=== PATIENT | female | born 1990 | race Caucasian/White ===

== ENCOUNTER 2017-04-14 20:44 | Emergency (ER) | payer OTHER ==
[~2017-04-14] VITALS: Ht 152.4 cm; Wt 76.0 kg
[~2017-04-14 20:44] MED LIST: METH500T PO; NAPR-688 PO
[2017-04-14 20:47] VITALS: Ht 152.4 cm; Wt 76.0 kg
[2017-04-14] MEDS ORDERED: SOD CHLORIDE 0.9% 500 ML IV STA (22:09)
[2017-04-14] MEDS ORDERED: KETOROLAC 30 MG INJ IV STA (22:09)
[2017-04-14] MEDS ORDERED: DIPHENHYDRAMINE 50 MG INJ IV STA (22:09)
[2017-04-14] MEDS ORDERED: ONDANSETRON 4 MG INJ IV STA (22:09)
[2017-04-14 22:49] LABS: URINE BLOOD (Dip) POC Negative (NEGATIVE)
--- NOTE | 2017-04-15 00:04 | ERD ---
ER Documentation Chief Complaint Date/Time DATE: 04/14/17 TIME: 23:55 Chief Complaint difuse lower abdominal pain for past week HPI This pleasant 27-year-old female presents to emergency department with complaint of headache and abdominal pain, patient reports the abdominal pain is periumbilical and radiates to bilateral flanks. Denies dysuria, denies nausea, vomiting, or diarrhea, reports decreased appetite, headache is described as frontal, reports throbbing sensation and that she feels dizzy, denies any change in vision, patient has history of headaches in the past usually improve with Tylenol or Motrin. Patient has tried to take [id number] medication today with little relief of symptoms. Patient denies change in behavior, change in motor skills, fever, chills, diarrhea or head injury. ROS All systems reviewed and are negative except as per history of present illness. Medications Home Meds Active Scripts Methocarbamol* (Robaxin*) 500 Mg Tab, 500 MG PO Q8, #20 TAB Prov:HUMPHREY QUEZADA DO 10/21/16 Naproxen* (Naproxen*) 500 Mg Tablet, 500 MG PO BID, #20 TAB Prov:HUMPHREY QUEZADA DO 10/21/16 Allergies Allergies: Coded Allergies: No Known Allergy (Unverified , 10/20/16) PMhx/Soc History of Surgery: No Anesthesia Reaction: No Hx Neurological Disorder: No Hx Respiratory Disorders: No Hx Cardiac Disorders: No Hx Psychiatric Problems: No Hx Miscellaneous Medical Probl: No Hx Alcohol Use: No Hx Substance Use: No Hx Tobacco Use: No Smoking Status: Never smoker Physical Exam Vitals Vital Signs Date Time Temp Pulse Resp B/P Pulse Ox O2 Delivery O2 Flow Rate FiO2 04/14/17 20:47 97.6 69 18 132/96 99 Vitals stable, triage notes reviewed Physical Exam Const: No acute distress Head: Atraumatic Eyes: Normal Conjunctiva, PERRLA, EOMI ENT: Normal External Ears, Nose and Mouth. Neck: Full range of motion. Supple, no cervical point tenderness Resp: Chest rise and fall symmetrically, clear to auscultation bilaterally, no respiratory Cardio: Abd: Soft, nontender to palpation at this time, negative McBurney's point tenderness negative CVA tenderness Skin: Back: Ext: Neuro: Alert and oriented Face: EOMI, face and pharynx with normal sensation and function Motor: Normal strength throughout Sensation: Normal sensation throughout Speech: Normal Cerebel: Normal coordination Normal gait Normal finger to nose DTR: 2+ and symmetric upper/lower extremities Psych: Normal Mood and Affect Results 24 hrs Laboratory Tests Test 04/14/17 22:51 Bedside Urine pH (LAB) 5.5 Bedside Urine Protein (LAB) Negative Bedside Urine Glucose (UA) Negative Bedside Urine Ketones (LAB) Negative Bedside Urine Blood Negative Bedside Urine Nitrite (LAB) Negative Bedside Urine Leukocyte Esterase (L Negative Current Medications Medications (Trade) Dose Ordered Sig/Brigido Route PRN Reason Start Time Stop Time Status Last Admin Dose Admin Sodium Chloride (NS) 500 ml @ 500 mls/hr Q1H STAT IV 04/14/17 22:09 04/14/17 23:08 DC 04/14/17 22:45 Ondansetron HCl (Zofran Inj) 4 mg ONCE STAT IV 04/14/17 22:09 04/14/17 22:14 DC 04/14/17 22:43 Ketorolac Tromethamine (Toradol) 15 mg ONCE STAT IV 04/14/17 22:09 04/14/17 22:14 DC 04/14/17 22:44 Diphenhydramine HCl (Benadryl) 25 mg ONCE STAT IV 04/14/17 22:09 04/14/17 22:14 DC 04/14/17 22:42 Procedures/MDM This pleasant 27-year-old female presents to the emergency department with headache, and abdominal pain. Dizziness,. Patient has headache history, today' s headache did not respond to normal treatment with nonsteroidal anti- inflammatory medication. Patient does not remember the exact onset of headache nor this is the worst headache she has ever had. Patient's abdominal pain is intermittent, periumbilical and radiates to flanks. Appendicitis is not suspected at this time patient has no dysuria, urinalysis negative for evidence of infection, or . Headache treatment with 500 cc of normal saline, IV Toradol, IV Zofran. Patient reassessed after 90 minutes with improvement of headache, and abdominal symptoms. Patient will be discharged home with Motrin, trial of Mylanta, increase fluids and rest, return to emergency department for recurring headache, abdominal pain returned with or without nausea, vomiting. I feel the patient is stable for discharge at this time and outpatient management by primary care physician. I have discussed results, examination findings, the treatment plan with the patient and family present prior to discharge. Indications for emergent reevaluation, side effects of medication were also discussed. All questions were answered. Patient verbalizes understanding and agrees with plan of care. Departure Diagnosis: Primary Impression: Abdominal pain Abdominal location: periumbilical Qualified Code: R10.33 - Periumbilical abdominal pain Additional Impression: Headache Headache type: unspecified Headache chronicity pattern: episodic headache Intractability: not intractable Qualified Code: R51 - Nonintractable episodic headache, unspecified headache type Condition: Good Patient Instructions: Abdominal Pain, Self-Care for Headaches Referrals: [facility] Additional Instructions: Thank you for for coming to [facility] for your care today. Please ask your nurse or provider if you have questions about your care today and do not leave until all your questions have been answered. Please use any medications given as directed and follow-up with your doctor (or the doctor you were referred to) in the next 2-3 days. If you do not have a primary care doctor you may follow up at the [facility] (listed below). You may also use motrin and tylenol as needed for fever and/or pain unless instructed otherwise by your provider or nurse. Indications for more urgent follow-up have been discussed, but you may return to the Emergency Department at ANY time for any worrisome or worsening symptoms. If you have abdominal pain, please know that no test or exam you received is perfect and you should follow up within 8 hours for continued pain. If you had any imaging studies today, such as an X-Ray or CT Scan, these studies will be reviewed later by a radiologist. You will be called if there are important findings that were not identified today, so make sure the contact information you provided at registration is correct. If you received any narcotic pain control medicine today, such as Vicodin, Morphine or Dilaudid, your coordination and judgment may be affected for a number of hours. Please do not drive or operate heavy machinery, and you may want someone to assist you at home. If you were given a prescription for narcotic medication, be aware that it is very addictive- use sparingly and only if necessary. FAHAD MONTELONGO April 15, 2017 00:04
[2017-04-15] MEDS ORDERED: IBUP400T22 PO (00:05)
[2017-04-15] MEDS ORDERED: MAG-19 PO (00:06)
[2017-04-15 00:22] VITALS: BP 124/76; PULSE 55; RESP 16
== END 2017-04-15 00:23 | disposition home or self-care (01) ==
LOC: FTE 20:44
DX: R10.33 Periumbilical pain (principal); R51 Headache
CPT/HCPCS: 81003; J1200; J1885; J2405; J7040; 36415; 96374; 96375